=== PATIENT | female | born 1960 | race African-American/Black ===

== ENCOUNTER 2022-04-07 11:44 | Inpatient (IN) | payer MEDICAID, OTHER ==
[~2022-04-07] VITALS: Ht 167.6 cm; Wt 82.6 kg
[~2022-04-07 11:44] MED LIST: LEVO500T2 PO
[2022-04-07 19:38] LABS: HEMATOCRIT. 42.1 % (36.0-48.0); HEMOGLOBIN. 14.4 g/dL (12.0-16.0); MEAN CORPUSCULAR HEMOGLOBIN 31.6 pg (28.0-32.0); MEAN CORPUSCULAR VOLUME 92.7 fL (81.0-99.0); MEAN PLATELET VOLUME 9.7 fl (7.4-10.4); PLATELET 122 x1000/uL (130-400); RED BLOOD CELL COUNT 4.54 mill/uL (4.2-5.4); RED CELL DISTRIBUTION WIDTH 14.7 % (11.6-14.6)
[2022-04-07 20:05] LABS: CHLORIDE 103 mEq/L (98-107)
[2022-04-07] MEDS ORDERED: ALBUTEROL (0.083%) 2.5MG/3ML NEB HHN STA (20:20)
[2022-04-07] MEDS ORDERED: IPRATROPIUM BROMIDE (0.02%) 0.5MG/2.5ML NEB HHN STA (20:20)
[2022-04-07] MEDS ORDERED: METHYLPREDNISOLONE SOD SUCC 125 MG/2 ML VIAL IV STA (20:20)
[2022-04-07] MEDS ORDERED: ALBUTEROL (0.083%) 2.5MG/3ML NEB HHN NR (20:20)
[2022-04-07] MEDS ORDERED: ASPIRIN 81MG TABLET PO ONE (20:30)
[2022-04-07 23:25] LABS: PLATELET ESTIMATE DECREASED
[2022-04-07] MEDS: IPRATROPIUM BROMIDE (0.02%) 0.5MG/2.5ML NEB HHN NR ×2 (23:41→23:42)
[2022-04-08 02:00] VITALS: BP 139/86
[2022-04-08] MEDS ORDERED: IPRATROPIUM/ALBUTEROL 0.5-3(2.5)MG/3ML NEB HHN PRN (03:15)
[2022-04-08] MEDS ORDERED: ONDANSETRON HCL 4MG/2ML INJ IV PRN (03:15)
[2022-04-08] MEDS: HYDROCODONE/ACETAMINOPHEN 5/325MG TABLET PO PRN ×2 (05:09→23:04)
[2022-04-08] MEDS: METHYLPREDNISOLONE SOD SUCC 40 MG/ML VIAL IV SCH ×3 (05:10→20:04)
[2022-04-08 07:09] LABS: BASOPHILS % 0.7 % (0.0-2.0); EOSINOPHILS % 0.1 % (0.0-5.0); HEMOGLOBIN. 13.4 g/dL (12.0-16.0); LYMPHOCYTES % 8.5 % (20.0-50.0); MEAN CORPUSCULAR HEMOGLOBIN 31.2 pg (28.0-32.0); MEAN CORPUSCULAR VOLUME 93.2 fL (81.0-99.0); MEAN PLATELET VOLUME 9.9 fl (7.4-10.4); MONOCYTES % 5.1 % (2.0-8.0); NEUTROPHILS % 85.6 % (40.0-76.0); PLATELET 120 x1000/uL (130-400); RED BLOOD CELL COUNT 4.29 mill/uL (4.2-5.4); RED CELL DISTRIBUTION WIDTH 14.7 % (11.6-14.6)
[2022-04-08 08:04] LABS: CHLORIDE 104 mEq/L (98-107)
[2022-04-08 08:11] VITALS: BP 135/86
[2022-04-08] MEDS: LEVOFLOXACIN 500MG TABLET PO SCH (10:06)
[2022-04-08] MEDS: BUDESONIDE 0.5MG/2ML NEB HHN SCH (10:11)
[2022-04-08 12:11] VITALS: BP 133/72
[2022-04-08] MEDS: IPRATROPIUM/ALBUTEROL 0.5-3(2.5)MG/3ML NEB HHN SCH ×2 (12:57→17:07)
[2022-04-08] MEDS ORDERED: NALOXONE HCL 0.4MG/ML VIAL IV PRN (14:00)
[2022-04-08 16:00] VITALS: BP 128/80
[2022-04-08 19:37] VITALS: BP 120/63
[2022-04-08] MEDS ORDERED: PNEUMOCOCCAL 23-VAL P-SAC VAC 0.5 ML IM ONE (21:00)
[2022-04-08] MEDS ORDERED: INFLUENZA VACCINE 05/PF 0.5 ML SYRINGE IM ONE (21:00)
[2022-04-08 23:37] VITALS: BP 103/57
[2022-04-09 01:39] LABS: *AMPHETAMINES SCREEN URINE NEGATIVE (NEGATIVE); *BARBITURATES SCREEN URINE NEGATIVE (NEGATIVE); *BENZODIAZEPINES SCREEN URINE NEGATIVE (NEGATIVE); *COCAINE SCREEN URINE NEGATIVE (NEGATIVE); CANNABINOID URINE SCREEN PRESUMTIVE POSITIVE (NEGATIVE); METHADONE URINE SCREEN NEGATIVE (NEGATIVE); OPIATES URINE SCREEN PRESUMTIVE POSITIVE (NEGATIVE); PHENCYCLIDINE URINE SCREEN NEGATIVE (NEGATIVE)
[2022-04-09] MEDS: METHYLPREDNISOLONE SOD SUCC 40 MG/ML VIAL IV SCH ×3 (03:02→19:43)
[2022-04-09 03:37] VITALS: BP 108/63
[2022-04-09 08:00] VITALS: BP 128/81
[2022-04-09] MEDS: LEVOFLOXACIN 500MG TABLET PO SCH (08:08)
[2022-04-09] MEDS: IPRATROPIUM/ALBUTEROL 0.5-3(2.5)MG/3ML NEB HHN SCH ×4 (09:15→20:38)
[2022-04-09] MEDS: BUDESONIDE 0.5MG/2ML NEB HHN SCH ×2 (09:15→20:36)
[2022-04-09] MEDS ORDERED: FLUT1DIS3 INH (10:19)
[2022-04-09] MEDS ORDERED: ALBU18HF2 IH (10:19)
[2022-04-09] MEDS ORDERED: P20 MT (10:19)
[2022-04-09 12:00] VITALS: BP 109/52
[2022-04-09 16:00] VITALS: BP 122/73
[2022-04-09 19:45] VITALS: BP 113/80
[2022-04-09 23:45] VITALS: BP 104/65
[2022-04-10] MEDS: IPRATROPIUM/ALBUTEROL 0.5-3(2.5)MG/3ML NEB HHN SCH ×7 (00:35→23:48)
[2022-04-10] MEDS: METHYLPREDNISOLONE SOD SUCC 40 MG/ML VIAL IV SCH ×3 (03:20→19:24)
[2022-04-10 03:33] VITALS: BP 127/77
[2022-04-10 08:00] VITALS: BP 139/77
[2022-04-10] MEDS: BUDESONIDE 0.5MG/2ML NEB HHN SCH ×2 (09:16→20:00)
[2022-04-10] MEDS: LEVOFLOXACIN 500MG TABLET PO SCH (10:49)
[2022-04-10 12:00] VITALS: BP 113/86
[2022-04-10] MEDS: HYDROCODONE/ACETAMINOPHEN 5/325MG TABLET PO PRN (15:59)
[2022-04-10 16:00] VITALS: BP 123/77
[2022-04-10 20:00] VITALS: BP 132/65
[2022-04-11] VITALS: BP 111/63
[2022-04-11] MEDS: METHYLPREDNISOLONE SOD SUCC 40 MG/ML VIAL IV SCH ×3 (03:15→20:05)
[2022-04-11] MEDS: IPRATROPIUM/ALBUTEROL 0.5-3(2.5)MG/3ML NEB HHN SCH ×5 (03:58→21:01)
[2022-04-11 04:00] VITALS: BP 129/87
[2022-04-11 08:00] VITALS: BP 113/76
[2022-04-11] MEDS: BUDESONIDE 0.5MG/2ML NEB HHN SCH (08:30)
[2022-04-11] MEDS: LEVOFLOXACIN 500MG TABLET PO SCH (09:15)
[2022-04-11 11:45] VITALS: BP 133/70
[2022-04-11] MEDS: GUAIFENESIN 200MG/10ML SUGAR FREE UDC PO PRN ×2 (11:45→20:15)
[2022-04-11 15:41] VITALS: BP 99/72
[2022-04-11 20:00] VITALS: BP 129/76
[2022-04-11] MEDS: HYDROCODONE/ACETAMINOPHEN 5/325MG TABLET PO PRN (20:20)
[2022-04-12] VITALS: BP 118/73
[2022-04-12] MEDS: BUDESONIDE 0.5MG/2ML NEB HHN SCH (00:51)
[2022-04-12] MEDS: IPRATROPIUM/ALBUTEROL 0.5-3(2.5)MG/3ML NEB HHN SCH ×6 (00:52→20:50)
[2022-04-12 04:00] VITALS: BP 114/93
[2022-04-12] MEDS: METHYLPREDNISOLONE SOD SUCC 40 MG/ML VIAL IV SCH ×3 (05:02→19:10)
[2022-04-12 08:00] VITALS: BP 113/72
[2022-04-12] MEDS: LEVOFLOXACIN 500MG TABLET PO SCH (08:56)
[2022-04-12] MEDS: GUAIFENESIN 200MG/10ML SUGAR FREE UDC PO PRN (11:56)
[2022-04-12 12:00] VITALS: BP 125/82
[2022-04-12 14:29] LABS: BG BASE EXCESS 1.2 mmol/L (-2.0-2.0); BG CARBOXYHEMOGLOBIN 0.5 % (0.5-1.5); BG DEOXYHEMOGLOBIN 7.6 % (0.0-5.0); BG FRACTION INSPIRED OXYGEN 28; BG OXYGEN SATURATION 92.4 % (92.0-98.5); BG OXYHEMOGLOBIN 91.9 % (94.0-97.0); BG PCO2 37.4 mmHg (35.0-45.0); BG PH 7.443 (7.350-7.450); BG PO2 64.8 mmHg (75.0-100.0); BG SAMPLE SITE RIGHT RADIAL; BG TOTAL HEMOGLOBIN 15.3 g/dL (12.0-18.0); BG VENT MODE NASAL CANNULA
[2022-04-12 16:00] VITALS: BP 128/87
[2022-04-12 19:58] VITALS: BP 120/73
[2022-04-13] VITALS (7 sets, daily range): BP systolic 116–133; BP diastolic 56–89
[2022-04-13] MEDS: IPRATROPIUM/ALBUTEROL 0.5-3(2.5)MG/3ML NEB HHN SCH ×6 (00:29→21:34)
[2022-04-13] MEDS: METHYLPREDNISOLONE SOD SUCC 40 MG/ML VIAL IV SCH ×3 (04:02→19:39)
[2022-04-13] MEDS: LEVOFLOXACIN 500MG TABLET PO SCH (08:08)
[2022-04-13 11:01] LABS: BG BASE EXCESS -0.6 mmol/L (-2.0-2.0); BG CARBOXYHEMOGLOBIN 0.4 % (0.5-1.5); BG DEOXYHEMOGLOBIN 9.1 % (0.0-5.0); BG HCO3 ACT 22.7 mmol/L (22.0-26.0); BG METHEMOGLOBIN 0.1 % (0.0-1.5); BG OXYGEN SATURATION 90.9 % (92.0-98.5); BG OXYHEMOGLOBIN 90.4 % (94.0-97.0); BG PCO2 33.8 mmHg (35.0-45.0); BG PH 7.445 (7.350-7.450); BG PO2 59.2 mmHg (75.0-100.0); BG SAMPLE SITE RIGHT RADIAL; BG TOTAL HEMOGLOBIN 15.2 g/dL (12.0-18.0); BG VENT MODE ROOM AIR
[2022-04-14] MEDS: IPRATROPIUM/ALBUTEROL 0.5-3(2.5)MG/3ML NEB HHN SCH ×4 (01:25→12:12)
[2022-04-14] MEDS: METHYLPREDNISOLONE SOD SUCC 40 MG/ML VIAL IV SCH ×2 (03:18→11:15)
[2022-04-14 04:30] VITALS: BP 131/79
[2022-04-14 07:35] VITALS: BP 134/68
[2022-04-14 09:18] VITALS: BP 123/60
== END 2022-04-14 13:55 | disposition home or self-care (01) | DRG 140 ==
LOC: ER 11:44 → ENRESERV 21:52 → 3WST 04-08 01:43
PROVIDERS: ADMIT Internal Medicine; ATTEND Internal Medicine
DX: J44.1 Chronic obstructive pulmonary disease with (acute) exacerbation (principal); J96.01 Acute respiratory failure with hypoxia; Z20.822 Contact with and (suspected) exposure to COVID-19; F17.210 Nicotine dependence, cigarettes, uncomplicated; R73.9 Hyperglycemia, unspecified; D69.6 Thrombocytopenia, unspecified; D72.819 Decreased white blood cell count, unspecified; Z71.6 Tobacco abuse counseling
CPT/HCPCS: 36415; 36600; 71045; 80048; 80053; 80305; 82375; 82805; 83880; 84484; 85025; 87070; 87426; 90686; 90732; 93005; 94640; 97116; 97162; 99285; J2920; J2930; J7626